=== PATIENT | male | born 1955 | race Two or more races ===

== ENCOUNTER 2024-07-19 21:28 | Emergency (ER) | payer MEDICAID, SELFPAY ==
[2024-07-19 23:28] VITALS: BP 177/98; PULSE 96; RESP 20; TEMP 37.2; O2SAT 95
[2024-07-20 00:21] LABS: Collection Type, Urine Catheter; Squamous Epithelial Cell,Urine 0 /hpf (0-5); WBC,Urine 0 /hpf (0-5)
--- NOTE | 2024-07-20 00:23 | EDNOTE_ITS ---
ED Male Genitalurinary RME/HPI General Chief complaint: Urogenital-Male Stated complaint: UNABLE TO URINE FOR 3-5 HOURS Time Seen by Provider: 07/19/24 23:34 Arrival date/time: 07/19/24 21:28 68M with history of HTN presents to ED with 5 hours of urinary retention. Limitations: no limitations Related Data Allergies Allergy/AdvReac Type Severity Reaction Status Date / Time No Known Allergies Allergy Verified 07/19/24 21:30 Review of Systems Review of Systems Systems Reviewed: All systems reviewed, normal except as documented Constitutional Constitutional: Reports system reviewed and no additional complaints, except as documented, Denies fever(s) and Denies headache(s) ENT Ears, Nose, Mouth, and Throat: Denies disequilibrium and Denies headache(s) Cardiovascular Cardiovascular: Reports system reviewed and no additional complaints, except as documented, Denies chest pain and Denies dyspnea Respiratory Respiratory: Reports system reviewed and no additional complaints, except as documented, Denies cough and Denies dyspnea Gastrointestinal Gastrointestinal: Reports system reviewed and no additional complaints, except as documented, Denies abdominal pain, Denies nausea and Denies vomiting Genitourinary Genitourinary: Reports as per HPI and Reports difficulty urinating Neurologic Neurologic: Reports system reviewed and no additional complaints, except as documented, Denies confusion, Denies disequilibrium and Denies headache(s) Psychiatric Psychiatric: Denies confusion Past Medical History Social History SMOKING STATUS: Current every day smoker ED Exam General Limitations: Present no limitations General appearance: Present alert and in no apparent distress Head Head exam: Present atraumatic Eye Eye exam: Present normal appearance, PERRL and EOMI ENT ENT exam: Present normal exam, normal oropharynx and mucous membranes moist Neck Neck exam: Present normal inspection, full ROM and trachea midline Chest Chest inspection: Present normal inspection and symmetric chest wall rise Respiratory Respiratory exam: Present normal lung sounds bilaterally Cardiovascular Cardiovascular exam: Present regular rate, normal rhythm and normal heart sounds Abdominal Exam Abdominal exam: Present soft and normal bowel sounds Extremities Exam Extremities exam: Present normal inspection and full ROM Back Exam Back exam: Present normal inspection and full ROM Neurological Exam Neurological exam: Present alert, oriented X3 and CN II-XII intact Psychiatric Psychiatric exam: Present normal affect and normal mood Skin Skin exam: Present warm, dry, intact and normal color Course Quality Measures none Orders Category Date Time Status Catheter [Urinary Catheter] QS Care 07/19/24 21:30 Completed [place] to Leg Bag Routine Care 07/19/24 21:30 Ordered Urinalysis Stat Lab 07/20/24 00:10 Completed Urine Culture Stat Lab 07/20/24 00:10 Received Vital Signs Vital signs: Vital Signs Temperature 99.0 F 07/19/24 23:28 Pulse Rate 96 07/19/24 23:28 Respiratory Rate 20 07/19/24 23:28 Blood Pressure 177/98 H 07/19/24 23:28 Pulse Oximetry (%) 95 07/19/24 23:28 Oxygen Delivery Method Room Air 07/19/24 23:28 O2 at 95% on RA and WNLs Urogenital - Male MDM Narrative MDM Narrative:: 68M with history of HTN presents to ED with 5 hours of urinary retention. Physical exam reveals uncomfortable patient, but in no acute distress. Patient is afebrile, calm, and alert. Relief immediately after [place] put in. UA only mild blood, no signs of infection. Patient data External records reviewed:: None Clinical information provided by:: patient Social determinants that could affect healthcare access:: none Patient has the following chronic illnesses:: HTN How is presenting disease/condition affected by chronic disease/condition?: uneffected by Evaluation data The following diagnostics were reviewed and interpreted by me:: lab results Lab and/or radiology exams considered but not ordered:: ordered Interpretation Summary: above Medications / Prescriptions Medications or Prescriptions considered but not ordered:: not ordered Medication administrations:: n/a Consultations Consultation(s) initiated? (list below): No Diagnosis Urogenital Male Differential Diagnosis: urinary tract infection, priapism, urethritis, epididymitis, genital herpes simplex, prostatitis, acute retention of urine, inguinal hernia and other (hematuria) Most likely diagnosis given after review of the tests above:: hematuria and acute urinary retention Admission Indicated Admission indicated?: not indicated Admission Request Was there a request for admission?: No Disposition Plan Disposition Plan: Discharge Discharge Attestation Discharge Attestation: The patient and all family members were given an opportunity to ask questions and understood the discharge instructions. Discharge instructions specifically effects, indications for sooner follow up or return to the emergency department, and the expected course of current diagnosis. Patient condition: Stable Discharge Plan Plan Patient Disposition: HOME (Self Care) Discharge Disposition comment: Stable Prescriptions/Referrals Referrals: No Primary/Family,Physician [Primary Care Provider] - In 1 week Problem List Clinical Impression: Acute retention of urine, Hematuria Patient/Caregiver Discharge Instructions Education Materials: ED Hematuria, ED Urinary Retention, Male Additional Instructions: Please follow-up with PCP within 24-48 hours and return immediately if symptoms worsen. If problem persists, see urologist. Print Language: [place] Stand Alone Forms: Patient Portal Info Letter PA/COMMUNICATIONS COORDINATOR Supervising Physician PA/TOM Supervising Physician: Dr. Waters
[2024-07-20 00:33] LABS: Bacteria,Urine Rare; Bilirubin,Urine Negative (Negative); Blood,Urine 2+ (Negative); Clarity,Urine Clear (Clear/Hazy); Color,Urine Drk-Yellow (Lt Yel-Yel); Glucose, Urine Negative (Negative); Ketones,Urine 1+ (Negative); Leukocyte Esterase,Urine Negative (Negative); Nitrite,Urine Negative (Negative); Protein,Urine Negative (Neg - Trace); RBC,Urine 102 /hpf (0-3); Specific Gravity,Urine 1.014 (1.001-1.035); Urobilinogen,Urine Negative mg/dL (0.0-1.0)
--- NOTE | 2024-07-20 00:45 | PC.NURSE ---
16F FC inserted. Catheter patent and draining orange/bhavesh clear urine to gravity. 1050ml out upon insertion of cath.
== END 2024-07-20 01:29 | disposition home or self-care (01) ==
PROVIDERS: Physician Assistant; Emergency Provider Emergency Medicine
DX: R33.9 Retention of urine, unspecified (principal); R31.9 Hematuria, unspecified; I10 Essential (primary) hypertension
CPT/HCPCS: 51702; 81001; 87086; 99283